=== PATIENT | female | born 1980 | race African-American/Black ===

== ENCOUNTER 2016-12-20 10:30 | Emergency (ER) | payer MEDICAID ==
[~2016-12-20] VITALS: Ht 165.1 cm; Wt 142.0 kg
[2016-12-20] MEDS ORDERED: ALBUTEROL SULF 2.5 MG/0.5ML(0.5%) NEB SOLN NEB ONE (11:15)
[2016-12-20 12:47] VITALS: BP 126/74
== END 2016-12-20 12:48 | disposition home or self-care (01) ==
LOC: ER 10:30
DX: J45.901 Unspecified asthma with (acute) exacerbation (principal)
CPT/HCPCS: 94640